=== PATIENT | female | born 1995 | race Caucasian/White ===

== ENCOUNTER 2018-06-16 17:00 | Observation (INO) | payer SELFPAY ==
[2018-06-16] MEDS ORDERED: Acetaminophen 500 MG TAB ONE (17:35)
[2018-06-16] MEDS ORDERED: Zolpidem Tartrate 5 MG TAB PO PRN (18:49)
[2018-06-16] MEDS ORDERED: Meperidine HCl/PF 25 MG/ML VIAL IM/IV PRN (18:49)
[2018-06-16] MEDS ORDERED: Acetaminophen 500 MG TAB PO PRN (18:49)
[2018-06-16] MEDS ORDERED: Butorphanol Tartrate 1 MG/ML VIAL SLOW IVP PRN (18:49)
[2018-06-16] MEDS ORDERED: Ondansetron PF 4 MG/2 ML Vial IVP PRN (18:49)
[2018-06-16] MEDS ORDERED: Promethazine HCl 25 MG/ML VIAL IM PRN (18:49)
[2018-06-16 19:20] VITALS: BMI 26.4
[2018-06-16 20:03] LABS: Hemoglobin 12.3 g/dL (12.0-16.0); Mean Corpuscular HGB CONC 33.2 g/dL (32.0-36.0); Mean Corpuscular Hemoglobin 29.7 pg (27.0-31.0); Mean Corpuscular Volume 89.4 fL (78.0-98.0); Mean Platelet Volume 7.5 fL (7.4-10.4); Platelet Count 231 thou/uL (130-400); RBC Distribution Width 11.6 % (11.5-14.5); Red Blood Cell (RBC) Count 4.15 mill/uL (4.20-5.40); White Blood Cell (WBC) Count 14.4 thou/uL (4.8-10.8)
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
[2018-06-16 20:36] VITALS: BP 109/62
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
--- NOTE | 2018-06-16 22:42 | PDOC.EVN ---
Event Note - Event Note Event Note: No bleeding. VSS FHTs stable. No UCs seen. USG: breech, biometry c/w dates, anterior placenta, adeq. AFV. Labs: Rh positive. KB shows no cells. Plan: Cont. observation.
[2018-06-17] MEDS ORDERED: Acetaminophen 500 MG TAB PO PRN (09:30)
[2018-06-17 09:38] VITALS: TEMP 97.9
[2018-06-17] MEDS ORDERED: traMADol HCl 50 MG TAB PO PRN ×2 (10:28→14:03)
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
== END 2018-06-17 16:07 | disposition home health service (06) ==
LOC: L&D/OP 17:00 → ERS 17:00 → EDSTATUS 18:15 → L&D 20:42
PROVIDERS: ADMIT Obstetrics & Gynecology; ATTEND Obstetrics & Gynecology
DX: O99.89 Other specified diseases and conditions complicating pregnancy, childbirth and the puerperium (principal); M79.18 Myalgia, other site; O9A.212 Injury, poisoning and certain other consequences of external causes complicating pregnancy, second trimester; S20.01XA Contusion of right breast, initial encounter; O32.1XX0 Maternal care for breech presentation, not applicable or unspecified; V89.2XXA Person injured in unspecified motor-vehicle accident, traffic, initial encounter; Z3A.24 24 weeks gestation of pregnancy; Z79.899 Other long term (current) drug therapy
CPT/HCPCS: 36415; 76805; 85027; 85460; 86850; 86900; 86901; 96374; 99285; G0378; J0595